=== PATIENT | male | born 1990 | race American Indian/Alaskan Native ===

== ENCOUNTER 2017-07-13 12:58 | Emergency (ER) | payer MEDICAID ==
[2017-07-13 13:10] VITALS: BP 154/99
[2017-07-13] MEDS ORDERED: ULTRAM PO ONE (14:14)
--- NOTE | 2017-07-13 14:40 | XRay Report ---
LEFT SHOULDER: History: Pain after trauma. Routine views demonstrate normal bony and soft tissue structures with normal joint alignment of the shoulder. IMPRESSION: Normal study.
--- NOTE | 2017-07-13 15:02 | Emergency Department Report ---
ED Upper Extremity Inj HPI - General Chief Complaint: Shoulder Injury Stated Complaint: LEFT SHOULDER PAIN Time Seen by Provider: 07/13/17 14:18 Source: patient Mode of arrival: Ambulatory Limitations: No Limitations - History of Present Illness Initial Comments: pt is a 27 y/o aam who present for left shoulder pain s/p glf while moving couch today, pt describes pain s 4/10 aching exacerbated by movement and heaving lifting , pain is relieved by rest, there is no weakness no numbness no tingling , rom is restricted by pain 6 MD Complaint: Injury to:: left, shoulder Onset/Timin -: hour(s) Other Extremity Injury: Shoulder: Left (left lateral shoulder ) Handedness: right Place: home Severity scale (0 -10): 4 Improves With: movement Worsens With: movement of extremity Context: fall Associated Symptoms: denies: weakness, numbness, neck pain, suspects foreign body, nausea/vomiting, heard/felt popping sensat - Related Data Previous Rx's Medication Instructions Recorded Last Taken Type Cyclobenzaprine [Flexeril] 10 mg PO TID PRN #30 tablet 07/13/17 Unknown Rx Naproxen [Naprosyn TAB] 500 mg PO BID PRN #60 tablet 07/13/17 Unknown Rx Allergies Allergy/AdvReac Type Severity Reaction Status Date / Time No Known Allergies Allergy Unverified 07/13/17 13:05 ED Review of Systems ROS: Stated complaint: LEFT SHOULDER PAIN Other details as noted in HPI Constitutional: denies: chills, fever Eyes: denies: eye pain, eye discharge, vision change ENT: denies: ear pain, throat pain Respiratory: denies: cough, shortness of breath, wheezing Cardiovascular: denies: chest pain, palpitations Endocrine: no symptoms reported Gastrointestinal: denies: abdominal pain, nausea, diarrhea Genitourinary: denies: urgency, dysuria Musculoskeletal: myalgia Skin: denies: rash, lesions Neurological: denies: headache, weakness, paresthesias Psychiatric: denies: anxiety, depression Hematological/Lymphatic: denies: easy bleeding, easy bruising ED Past Medical Hx - Past Medical History Previous Medical History?: No - Surgical History Past Surgical History?: Yes Additional Surgical History: UPJ obstruction - Social History Smoking Status: Never Smoker Substance Use Type: None - Medications Home Medications: Home Medications Medication Instructions Recorded Confirmed Last Taken Type Cyclobenzaprine [Flexeril] 10 mg PO TID PRN #30 tablet 07/13/17 Unknown Rx Naproxen [Naprosyn TAB] 500 mg PO BID PRN #60 tablet 07/13/17 Unknown Rx ED Physical Exam - General Limitations: No Limitations General appearance: alert, in no apparent distress - Head Head exam: Present: atraumatic, normocephalic - Eye Eye exam: Present: normal appearance - ENT ENT exam: Present: mucous membranes moist - Neck Neck exam: Present: normal inspection - Respiratory Respiratory exam: Present: normal lung sounds bilaterally. Absent: respiratory distress - Cardiovascular Cardiovascular Exam: Present: regular rate, normal rhythm. Absent: systolic murmur, diastolic murmur, rubs, gallop - GI/Abdominal GI/Abdominal exam: Present: soft, normal bowel sounds - Rectal Rectal exam: Present: deferred - Extremities Exam Extremities exam: Present: normal inspection, tenderness, normal capillary refill. Absent: pedal edema, joint swelling, calf tenderness - Expanded Upper Extremity Exam Left Shoulder Exam: Present: normal inspection, tenderness, tenderness over AC joint. Absent: swelling, abrasion, laceration, ecchymosis, deformity, crepidus , dislocation, erythema Upper Arm exam: Present: normal inspection, full ROM Elbow exam: Present: normal inspection, full ROM Forearm Wrist exam: Present: normal inspection, full ROM Hand Wrist exam: Present: normal inspection, full ROM Neuro motor exam: Present: wrist extension intact, thumb opposition intact, thumb IP flexion intact, thumb adduction intact, fingers 2-5 abduction intact Neurosensory exam: Present: 2-point discrimination, radial nerve intact, ulnar nerve intact, median nerve intact Vascular: Present: normal capillary refill, radial pulse, brachial pulse, ulnar pulse. Absent: vascular compromise, pulse deficit radial art, pulse deficit ulnar art, pulse deficit brachial art - Back Exam Back exam: Present: normal inspection. Absent: tenderness, CVA tenderness (R), CVA tenderness (L), muscle spasm, paraspinal tenderness, vertebral tenderness - Neurological Exam Neurological exam: Present: alert, oriented X3, CN II-XII intact, normal gait, reflexes normal - Psychiatric Psychiatric exam: Present: normal affect, normal mood - Skin Skin exam: Present: warm, dry, intact, normal color. 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 pt will follow up with primary care if symptoms persist. Critical care attestation.: If time is entered above; I have spent that time in minutes in the direct care of this critically ill patient, excluding procedure time. ED Disposition Clinical Impression: Left shoulder strain Qualifiers: Encounter type: initial encounter Qualified Code(s): S46.912A - Strain of unspecified muscle, fascia and tendon at shoulder and upper arm level, left arm , initial encounter Disposition: TO HOME OR SELFCARE Is pt being admited?: No Does the pt Need Aspirin: No Condition: Good Instructions: Rotator Cuff Injury (ED) Prescriptions: Cyclobenzaprine [Flexeril] 10 mg PO TID PRN #30 tablet PRN Reason: Muscle Spasm Naproxen [Naprosyn TAB] 500 mg PO BID PRN #60 tablet PRN Reason: Pain Referrals: PRIMARY CARE, [Primary Care Provider] - 3-5 Days Forms: Work/School Release Form(ED) Time of Disposition: 15:10
== END 2017-07-13 15:16 | disposition home or self-care (01) ==
LOC: ED 12:58
DX: S46.912A Strain of unspecified muscle, fascia and tendon at shoulder and upper arm level, left arm, initial encounter (principal); X58.XXXA Exposure to other specified factors, initial encounter; Y93.89 Activity, other specified; Y92.89 Other specified places as the place of occurrence of the external cause; Y99.8 Other external cause status
CPT/HCPCS: 99283

== ENCOUNTER 2020-03-24 09:14 | Emergency (ER) | payer MEDICAID ==
[2020-03-24 09:22] VITALS: BP 148/81
--- NOTE | 2020-03-24 09:45 | Emergency Department Report ---
Chief Complaint: Extremity Injury, Lower Stated Complaint: LFT PINKY TOE INJURED/PAIN Time Seen by Provider: 03/24/20 09:44 - HPI History of Present Illness: 30 YO COMES TO ER WITH SORE 5TH TOE. NO TRAUMA. HE IT FROM 2ND TOE AND NOW IT HURTS AMBULATORY NEURO VASC INTACT - ROS Review of Systems: 5TH TOE PAIN - Exam Vital Signs: Vital Signs 03/24/20 09:20 Temperature 98.1 F Pulse Rate 90 Respiratory 18 Rate Blood Pressure 148/81 O2 Sat by Pulse 99 Oximetry Physical Exam: RAPID CAP REFILL FULL ROM FOOT MSE screening note: Focused history and physical exam performed. Due to findings the following was ordered: MARIAH TAPE TO TOE EDUCATED MSE HOME Patient discussed with doctor:: VERENICE ALEXANDRE ED Disposition for MSE Clinical Impression: Contusion Disposition: MED SCREENING EXAM-LEFT Is pt being admited?: No Does the pt Need Aspirin: No Condition: Stable Referrals: PRIMARY CARE, [Primary Care Provider] - 3-5 Days Time of Disposition: 09:45
== END 2020-03-24 09:44 | disposition left against medical advice (07) ==
LOC: ED 09:14
DX: S90.122A Contusion of left lesser toe(s) without damage to nail, initial encounter (principal); X58.XXXA Exposure to other specified factors, initial encounter; Y93.89 Activity, other specified; Y92.89 Other specified places as the place of occurrence of the external cause; Y99.8 Other external cause status
CPT/HCPCS: 99281

== ENCOUNTER 2020-03-27 07:21 | Emergency (ER) | payer MEDICAID ==
[2020-03-27 07:33] VITALS: BP 158/78
--- NOTE | 2020-03-27 08:04 | Emergency Department Report ---
HPI - General Chief Complaint: Pain General Time Seen by Provider: 03/27/20 07:54 - HPI HPI: 30-year-old male presents to the emergency department with complaint of some redness, pain and swelling to the top of his left foot, and some pain in between the fourth and fifth toes, that has been going on for the past few days. The patient was seen here on 03/22/2020 for a toothache and was placed on ibuprofen and clindamycin, which she has been taking compliantly. Patient came here on 03/24 for some pain in between his toes. Now the patient has been having the pain, swelling and redness to the top of the foot. He is concerned as he is a diabetic. Denies any fever. He took some ibuprofen this morning prior to presentation. He has a primary care physician but has not seen them regarding the symptoms. No recent travel. ED Past Medical Hx - Past Medical History Hx Hypertension: Yes Hx Diabetes: Yes Hx Renal Disease: Yes Additional medical history: Stent left kidney - Surgical History Additional Surgical History: UPJ obstruction - Social History Smoking Status: Current Some Day Smoker Substance Use Type: Alcohol - Medications Home Medications: Home Medications Medication Instructions Recorded Confirmed Last Taken Type Cyclobenzaprine [Flexeril] 10 mg PO TID PRN #30 tablet 07/13/17 Unknown Rx Naproxen [Naprosyn TAB] 500 mg PO BID PRN #60 tablet 07/13/17 Unknown Rx Clindamycin [Clindamycin CAP] 300 mg PO Q8H 10 Days #30 cap 03/22/20 Unknown Rx Ibuprofen [Motrin 800 MG tab] 800 mg PO Q8HR PRN #15 tablet 03/22/20 Unknown Rx Ciprofloxacin HCl [Ciprofloxacin 500 mg PO Q12HR #14 tab 03/27/20 Unknown Rx TAB] Nystatin 1,000,000 unit MC BID #1 box 03/27/20 Unknown Rx ED Review of Systems ROS: Stated complaint: L FOOT PAIN Other details as noted in HPI Comment: All other systems reviewed and negative Constitutional: denies: chills, fever Musculoskeletal: arthralgia Skin: change in color. denies: pruritus Neurological: denies: numbness, paresthesias Physical Exam - Physical Exam Vital Signs: Vital Signs 03/27/20 07:32 Temperature 98.7 F Pulse Rate 93 H Respiratory 18 Rate Blood Pressure 158/78 [Left] O2 Sat by Pulse 99 Oximetry Physical Exam: GENERAL: The patient is well-developed well-nourished. HENT: Normocephalic. Atraumatic. Patient has moist mucous membranes. EYES: Extraocular motions are intact. NECK: Supple. Trachea is midline. ABDOMEN: There is no abdominal distention. SKIN: Skin is warm and dry. There is some erythema and warmth to the dorsal distal left foot but no fluctuance. There is a small ulceration to the webbing between the fourth and fifth toe. NEURO: The patient is awake, alert, and oriented. The patient is cooperative. Normal speech. MUSCULOSKELETAL: There is some mild tenderness to palpation to the dorsal distal left foot. There is no limitation range of motion. There is no evidence of acute injury. +4 left dorsalis pedis pulse and capillary refill less than 2 seconds. ED Course Vital Signs 03/27/20 07:32 Temperature 98.7 F Pulse Rate 93 H Respiratory 18 Rate Blood Pressure 158/78 [Left] O2 Sat by Pulse 99 Oximetry ED Medical Decision Making - Lab Data Result diagrams: 03/27/20 08:08 03/27/20 08:08 - Radiology Data Radiology results: image reviewed interpreted by me: X-ray of the left foot shows some mild soft tissue swelling to the mid to distal foot but no signs of any osteomyelitis. No fracture or dislocation. - Medical Decision Making This patient presents with a 3 to 4-day history of some swelling, redness and discomfort to the left foot. He also noticed some type of a lesion in between the fourth and fifth toes. There appears to be a small ulcer with a little bit of moisture but no obvious discharge. The dorsal distal half to one third of the left foot has signs of a cellulitis with erythema and warmth but no fluctuance. An x-ray was done that does not show any fracture, dislocation or signs of osteomyelitis. Patient's vital signs stable including being afebrile. Labs have been unremarkable including no leukocytosis. For these reasons the patient appears safe for discharge home at this time. He has been given referrals for podiatry and encouraged to follow-up with his primary care physician. He will continue with the clindamycin that was previously prescribed, which provides good gram-positive and MRSA coverage, but I will add a fluoroquinolone to give some gram-negative and Pseudomonas coverage as well. Also, the area between his toes appears consistent with some mild yeast or candidal infection. He will be given nystatin powder. We discussed the importance of immediate return with any worsening of his symptoms or signs of worsening or systemic infection. All of his questions have been answered and he understands and agrees to the plan. Critical Care Time: No Critical care attestation.: If time is entered above; I have spent that time in minutes in the direct care of this critically ill patient, excluding procedure time. ED Disposition Clinical Impression: Cellulitis of foot, left, History of diabetes mellitus Foot ulcer, limited to breakdown of skin Qualifiers: Laterality: left Qualified Code(s): L97.521 - Non-pressure chronic ulcer of other part of left foot limited to breakdown of skin Disposition: DC-01 TO HOME OR SELFCARE Is pt being admited?: No Condition: Stable Instructions: Cellulitis (ED), Diabetic Foot Ulcers (ED) Additional Instructions: Please follow-up with your primary care physician in the next few days. I am giving you a referral for 2 different local podiatrists to follow-up regarding your foot cellulitis, the small ulcer between your fourth and fifth toes, and for general evaluation as a diabetic. Take the antibiotics as prescribed. Return to the emergency department immediately with any worsening of your symptoms or any signs/symptoms of worsening infection such as increased pain, increased swelling, increased redness or streaking of redness up the leg, development of fever, discharge of pus. Prescriptions: Ciprofloxacin HCl [Ciprofloxacin TAB] 500 mg PO Q12HR #14 tab Nystatin 1,000,000 unit MC BID #1 box Referrals: CHEL TORIBIO DPM [Staff Physician] - 2-3 Days MILA MEDLEY MD [Staff Physician] - 2-3 Days Time of Disposition: 08:49
[2020-03-27 08:20] LABS: Basophils % (Auto) 0.3 % (0.0-1.8); Eosinophils % (Auto) 0.4 % (0.0-4.3); Hematocrit 37.3 % (35.5-45.6); Hemoglobin 12.3 gm/dl (11.8-15.2); Lymphocytes # (Auto) 1.3 K/mm3 (1.2-5.4); Lymphocytes % (Auto) 15.6 % (13.4-35.0); Mean Corpuscular HGB Conc 33 % (32-34); Monocytes # (Auto) 0.8 K/mm3 (0.0-0.8); Monocytes % (Auto) 10.1 % (0.0-7.3); Red Cell Distribution Width 15.3 % (13.2-15.2)
--- NOTE | 2020-03-27 08:20 | XRay Report ---
LEFT FOOT 3 VIEW(S) INDICATION / CLINICAL INFORMATION: red, swollen, painful left foot COMPARISON: None available. FINDINGS: BONES / JOINT(S): No acute fracture or subluxation. No significant arthritis. No osseous erosions or destruction. SOFT TISSUES: Mild soft tissue swelling of the forefoot and along the dorsum of the midfoot. ADDITIONAL FINDINGS: None. Signer Name: Jose Martinez MD Signed: 03/27/2020 8:16 AM Workstation Name: [id number]
[2020-03-27 08:21] LABS: Mean Corpuscular Volume 69 fl (84-94)
[2020-03-27 08:22] LABS: Platelet Count 205 K/mm3 (140-440)
[2020-03-27 08:41] LABS: BUN/Creatinine Ratio 14; Blood Urea Nitrogen 11 mg/dL (9-20); Calcium 9.8 mg/dL (8.4-10.2); Hemolysis Index 4
== END 2020-03-27 09:09 | disposition home or self-care (01) ==
LOC: ED 07:21
DX: L03.116 Cellulitis of left lower limb (principal); L97.521 Non-pressure chronic ulcer of other part of left foot limited to breakdown of skin; I10 Essential (primary) hypertension; E11.9 Type 2 diabetes mellitus without complications; Z79.899 Other long term (current) drug therapy
CPT/HCPCS: 36415; 80048; 85025; 99283

== ENCOUNTER 2020-12-04 14:45 | Emergency (ER) | payer MEDICAID ==
[2020-12-04 15:43] VITALS: BP 137/84
== END 2020-12-04 18:41 | disposition left against medical advice (07) ==
LOC: ED 14:45
DX: R10.9 Unspecified abdominal pain (principal); Z53.21 Procedure and treatment not carried out due to patient leaving prior to being seen by health care provider

== ENCOUNTER 2021-05-06 21:49 | Emergency (ER) | payer OTHER, MEDICAID ==
[2021-05-06 22:16] VITALS: BP 164/112
[2021-05-06] MEDS ORDERED: ACETAMINOPHEN 500 MG TAB PO ONE (22:18)
[2021-05-06] MEDS ORDERED: ACETAMINOPHEN 500 MG TAB ONE (22:19)
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
== END 2021-05-07 00:24 | disposition home or self-care (01) ==
LOC: ED 21:49
DX: S76.012A Strain of muscle, fascia and tendon of left hip, initial encounter (principal); S70.02XA Contusion of left hip, initial encounter; I10 Essential (primary) hypertension; E11.9 Type 2 diabetes mellitus without complications; Z79.899 Other long term (current) drug therapy; V49.49XA Driver injured in collision with other motor vehicles in traffic accident, initial encounter; Y92.410 Unspecified street and highway as the place of occurrence of the external cause; Y93.89 Activity, other specified; Y99.8 Other external cause status

== ENCOUNTER 2022-07-08 01:29 | Emergency (ER) | payer MEDICAID, OTHER ==
[2022-07-08 01:39] VITALS: BP 146/85
== END 2022-07-08 03:59 | disposition left against medical advice (07) ==
LOC: ED 01:29
DX: R21 Rash and other nonspecific skin eruption (principal); Z53.21 Procedure and treatment not carried out due to patient leaving prior to being seen by health care provider